=== PATIENT | male | born 1950 | race Caucasian/White ===

== ENCOUNTER 2020-12-02 10:41 | Day surgery (SDC) | payer MEDICARE ==
[~2020-12-02] VITALS: Ht 185.4 cm; Wt 75.5 kg
[2020-12-02] VITALS (11 sets, daily range): BP systolic 128–178; BP diastolic 70–93
[~2020-12-02 10:41] MED LIST: ATOR-2 PO; BUDE10.2 INH; CARV-49 PO; CLOP-32 PO; LISI-790 PO; TRAM50TA2 PO
[2020-12-02] MEDS ORDERED: LIDOcaine/PRILOcaine 5gm cream TP ONE (11:15)
[2020-12-02] MEDS ORDERED: diphenhydrAMINE 25mg capsule PO PRN (11:15)
[2020-12-02] MEDS ORDERED: normal saline 1,000 ML IV SCH ×2 (11:15→15:00)
[2020-12-02] MEDS ORDERED: LORazepam 0.5 MG tablet PO PRN (11:15)
[2020-12-02] MEDS ORDERED: ATOR10TA87 PO (11:21)
[2020-12-02] MEDS ORDERED: CARV3.12 PO (11:21)
[2020-12-02] MEDS ORDERED: ASPI-1265 PO (11:21)
[2020-12-02] MEDS ORDERED: ISOS10TA2 PO (11:21)
[2020-12-02] MEDS ORDERED: PANT-47 PO (11:21)
[2020-12-02 11:30] LABS: BASOPHILS # (AUTO) 0.1 X10'3 (0-0.2); BASOPHILS % (AUTO) 0.7 % (0-1); EOSINOPHILS # (AUTO) 0.3 X10'3 (0-0.9); HEMATOCRIT 44.8 % (42.0-52.0); HEMOGLOBIN 15.4 g/dl (14.0-17.9); LYMPHOCYTES # (AUTO) 1.7 X10'3 (1.1-4.8); LYMPHOCYTES % (AUTO) 20.9 % (21-51); MEAN CORPUSCULAR HEMOGLOBIN 31.9 PG (27.0-31.0); MEAN CORPUSCULAR HGB CONC 34.4 g/dL (33.0-36.5); MEAN CORPUSCULAR VOLUME 92.9 FL (78-98); MEAN PLATELET VOLUME 9.5 FL (7.4-10.4); MONOCYTES # (AUTO) 0.7 X10'3 (0-0.9); NEUTROPHILS # (AUTO) 5.6 X10'3 (1.8-7.7); NEUTROPHILS % (AUTO) 67.4 % (42-75); PLATELET COUNT 151 X10'3 (140-440); RED BLOOD COUNT 4.83 X10'6 (4.70-6.10); RED CELL DISTRIBUTION WIDTH 14.7 % (11.5-14.5); WHITE BLOOD COUNT 8.3 X10'3 (4.5-11.0)
[2020-12-02 11:41] LABS: PARTIAL THROMBOPLASTIN TIME 28 SECONDS (22-32)
[2020-12-02 11:44] LABS: ANION GAP 8 (8-16); BLOOD UREA NITROGEN 19 MG/DL (7-18); BUN/CREATININE RATIO 20.4 (5.4-32.0); CALCIUM 8.9 MG/DL (8.5-10.1); CHLORIDE 103 MMOL/L (99-107); CREATININE 0.93 MG/DL (0.60-1.10); GLUCOSE 100 MG/DL (70-104); SODIUM 139 MMOL/L (135-145); TOTAL CARBON DIOXIDE 27.9 MMOL/L (24-32); eGFR 81 ML/MIN
[2020-12-02] MEDS ORDERED: fentaNYL/PF 50MCG/1 ML 2ML syringe ONE (11:53)
[2020-12-02] MEDS ORDERED: LIDOcaine 1% (10mg/ml)w/preservative injection 20ml MDV ONE (11:53)
[2020-12-02] MEDS ORDERED: iohexol 350MG/ML 100ml bottle IV ONE ×2 (11:53→13:16)
[2020-12-02] MEDS ORDERED: midazolam 1 mg/ML 2ml injection ONE (11:53)
[2020-12-02] MEDS ORDERED: iohexol 350 MG/ML 50ML vial IV ONE ×2 (11:53→13:03)
[2020-12-02] MEDS ORDERED: heparin 1,000unit/ml 10ml vial 10 ML ONE (12:07)
[2020-12-02] MEDS ORDERED: nitroGLYCERIN-Tridil 50MG/D5W 250 ML IV ONE (12:07)
[2020-12-02] MEDS ORDERED: verapamil 2.5 mg/ml inj IV ONE (12:07)
[2020-12-02] MEDS ORDERED: heparin 25,000 UNIT/250ml bag 250 ML IV ONE (13:16)
[2020-12-02 13:17] LABS: ISTAT Hct MIX 42 %PCV (42-52); ISTAT O2 SATURATION MIX VENOUS 72 % (60-80); ISTAT SOURCE VEN
[2020-12-02] MEDS ORDERED: clopidogrel 300mg tablet ONE (14:01)
--- NOTE | 2020-12-02 17:42 | NUR ---
Report to Shima Lind RN. Right groin site remains stable, no s/s hematoma.
[2020-12-02] MEDS ORDERED: carVEDilol 3.125mg tablet PO SCH (20:00)
[2020-12-03] MEDS ORDERED: lisinopril 5mg tablet PO SCH (08:00)
[2020-12-03] MEDS ORDERED: aspirin 81mg tab.chew PO SCH (08:00)
[2020-12-03] MEDS ORDERED: pantoprazole 40mg Tablet.DR PO SCH (08:00)
[2020-12-03] MEDS ORDERED: clopidogrel 75mg tablet PO SCH (08:00)
[2020-12-03] MEDS ORDERED: atorvastatin 20mg tablet PO SCH (08:00)
== END 2020-12-02 19:55 | disposition home or self-care (01) ==
LOC: SSTAY O 10:41
PROVIDERS: ATTEND Internal Medicine Cardiovascular Disease
DX: R94.39 Abnormal result of other cardiovascular function study (principal); I25.119 Atherosclerotic heart disease of native coronary artery with unspecified angina pectoris; I25.82 Chronic total occlusion of coronary artery; I47.2 Ventricular tachycardia; I42.0 Dilated cardiomyopathy; I25.5 Ischemic cardiomyopathy; I10 Essential (primary) hypertension; E78.5 Hyperlipidemia, unspecified; J44.9 Chronic obstructive pulmonary disease, unspecified; I25.2 Old myocardial infarction; K21.9 Gastro-esophageal reflux disease without esophagitis; Z95.5 Presence of coronary angioplasty implant and graft; Z79.899 Other long term (current) drug therapy; Z79.82 Long term (current) use of aspirin; Z98.890 Other specified postprocedural states; Z87.01 Personal history of pneumonia (recurrent); Z79.01 Long term (current) use of anticoagulants; Z80.3 Family history of malignant neoplasm of breast
CPT/HCPCS: 36415; 76937; 80048; 82803; 85014; 85025; 85347; 85610; 85730; 93005; 93460; 99152; 99153; C1725; C1751; C1760; C1769; C1874; C1894; C9607; J1644; J2001; J2250; J3010; J7030; Q0163; Q9967; A4620; A6258; J3490